=== PATIENT | female | born 1940 | race Caucasian/White ===

== ENCOUNTER 2016-10-18 15:10 | Emergency (ER) | payer MEDICARE, MEDICAID ==
[2016-10-18] MEDS ORDERED: Lidocaine 1% with EPINEPHrine 1:100,000 20 ML MDV INJECT ONE (15:22)
[2016-10-18] MEDS ORDERED: Diphtheria,Pertussis(Acell),Tetanus Vaccine 0.5 ML Syringe IM ONE (17:04)
--- NOTE | 2016-10-18 17:10 | EDM.PDOC ---
ED HPI HEAD INJURY - General Chief Complaint: Head Injury Stated Complaint: FALL Time Seen by Provider: 10/18/16 16:04 Source of Information: Reports: Patient, Family History Limitations: Reports: No limitations - History of Present Illness INITIAL COMMENTS - FREE TEXT/NARRATIVE: HISTORY AND PHYSICAL: [76-year-old female presents per EMS after having fallen in her yard. She was stepping over some boards with a shovel in her hand and fell striking the shovel against her forehead. C-collar is in place on arrival.] History of Present Illness: [Just prior to emergency room visit patient had injury. Reports no loss of consciousness. Bandages to scalp and right forhead] Review of Systems: As per history of present illness and below otherwise all systems reviewed and negative. Past medical history: As per history of present illness and as reviewed below otherwise noncontributory. Surgical history: As per history of present illness and as reviewed below otherwise noncontributory. Social history: No reported history of drug or alcohol abuse. Family history: As per history of present illness and as reviewed below otherwise noncontributory. Physical exam: Alert female speaking appropriately remembers incident. HEENT: 2 cm laceration to right forehead, area is bleeding in spurts 1% lidocaine with epinephrine is injected to this area vasospasm did stop the bleeding no other injuries were noted scalp, normocehpalic, pupils reactive, negative for conjunctival pallor or scleral icterus, mucous membranes moist, throat clear, neck supple, nontender, trachea midline. Lungs: Clear to auscultation, breath sounds equal bilaterally, chest non tender. Heart: S1S2, regular, negative for clicks, rubs, or JVD. Abdomen: Soft, nondistended, nontender. Negative for masses or hepatossplenmegaly. Negative for costovertebral tenderness. Pelvis: Stable nontender. Genitourinary: Deferred. Rectal: Deferred Extremities: Minor scrape on right forearm and right humerus, no bleeding noted , negative for cords or calf pain. Arthritic pain is present unchanged from her normal. Minor abrasion to right knee full range of motion present all pedal pulses were easily palpable and full range of motion present to each extremity. Neurovascular unremarkable. Neuro: Awake, alert, oriented. Cranial nerves II through XII unremarkable. Cerebellum unremarkable. Motor and sensory unremarkable throughout. Exam nonfocal. Diagnostics: [CT head negative for cranial bleed /fracture] Therapeutics: [Sutures placed] Impression: [fall with laceration] Plan: [Followup with Dr. Stuart next] Definitive disposition and diagnosis as appropriate pending reevaluation and review of above. Timing/Duration: Reports: Minutes:, Sudden onset Location: Reports: frontal Quality: Reports: stabbing Severity: moderate Place of Occurrence: home Improves with: none Worsens with: movement Context: Reports: fall Associated Symptoms: Reports: no other symptoms - Related Data Allergies/ADRs: Allergies Allergy/AdvReac Type Severity Reaction Status Date / Time morphine Allergy Other Verified 05/28/15 16:25 Home Meds: Home Meds Lisinopril 5 mg PO DAILY 10/18/16 [History] Past Medical History HEENT History: Reports: None, Other (see below) Other HEENT History: Wears glasses Cardiovascular History: Reports: Hypertension Respiratory History: Reports: None Gastrointestinal History: Reports: None Genitourinary History: Reports: None 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 Musculoskeletal History: Reports: Osteoarthritis Neurological History: Reports: None Psychiatric History: Reports: None Endocrine/Metabolic History: Reports: None Hematologic History: Reports: None Immunologic History: Reports: None Oncologic (Cancer) History: Reports: None Dermatologic History: Reports: None - Infectious Disease History Infectious Disease History: Reports: None - Past Surgical History Head Surgeries/Procedures: Reports: None HEENT Surgical History: Reports: None Cardiovascular Surgical History: Reports: None Respiratory Surgical History: Reports: None GI Surgical History: Reports: None Female Surgical History: Reports: None Endocrine Surgical History: Reports: None Musculoskeletal Surgical History: Reports: None Dermatological Surgical History: Reports: None Social & Family History - Family History Family Medical History: Noncontributory - Tobacco Use Smoking Status *Q: Never Smoker - Caffeine Use Caffeine Use: Reports: None - Recreational Drug Use Recreational Drug Use: No ED ROS GENERAL - Review of Systems Review Of Systems: ROS reveals no pertinent complaints other than HPI. ED EXAM, HEAD INJURY - Physical Exam Exam: See Below (See dictation) ED LACERATION/WOUND & MANI PROC - Laceration/Wound Repair Right Lateral Forehead Lac/wound length in cm: 2 Appearance: subcutaneous, linear, clean Distal NVT: neuro & vascular intact, no tendon injury Local anesthesia - Lidocaine (Xylocaine): 1% with epi Local anesthetic volume: 5cc Skin prep: saline Exploration/Debridement/Repair: wound explored, in a bloodless field, explored to base Closed with: sutures Suture size: 3-0 # of sutures: 4 Suture type: nylon, interrupted, simple Drain placement: No Tetanus status addressed: Yes Complications: No Course - Vital Signs Last Recorded V/S: Last Vital Signs Temp 36.8 C 10/18/16 16:55 Pulse 72 10/18/16 16:55 Resp 18 10/18/16 16:55 BP 136/62 10/18/16 16:55 Pulse Ox 95 10/18/16 16:55 - Orders/Labs/Meds Orders: Active Orders 24 hr Category Date Time Status Head wo Cont [CT] Stat Exams 10/18/16 16:05 Taken Meds: Medications Discontinued Medications Generic Name Dose Route Start Last Admin Trade Name Trever PRN Reason Stop Dose Admin Lidocaine/Epinephrine 20 ml 10/18/16 15:22 Xylocaine 1% With Epinephrine 1:100,000 INJECT 10/18/16 15:23 ONETIME ONE Departure - Departure Time of Disposition: 17:12 Disposition: Home, Self-Care 01 Condition: good Clinical Impression: Laceration Instructions: Head Injury, Adult, [id number] Forms: ED Department Discharge Additional Instructions: [] Plan: [The following information is given to patients seen in the emergency department who are being discharged to home. This information is to outline your options for follow-up care. We provide all patients seen in our emergency department with a follow-up referral. The need for follow-up, as well as the timing and circumstances, are variable depending upon the specifics of your emergency department visit. If you don't have a primary care physician on staff, we will provide you with a referral. We always advise you to contact your personal physician following an emergency department visit to inform them of the circumstance of the visit and for follow-up with them and/or the need for any referrals to a consulting specialist. The emergency department will also refer you to a specialist when appropriate. This referral assures that you have the opportunity for followup care with a specialist. All of these measure are taken in an effort to provide you with optimal care, which includes your followup. Under all circumstances we always encourage you to contact your private physician who remains a resource for coordinating your care. When calling for followup care, please make the office aware that this follow-up is from your recent emergency room visit. If for any reason you are refused follow-up, please contact the [facility] emergency department at and asked to speak to the emergency department charge nurse. Sutures out in 7 days Follow up with Dr. Stuart next week] Definitive disposition and diagnosis as appropriate pending reevaluation and review of above. - My Orders Last 24 Hours: My Active Orders 10/18/16 16:05 Head wo Cont [CT] Stat - Assessment/Plan Last 24 Hours: My Active Orders 10/18/16 16:05 Head wo Cont [CT] Stat
[2016-10-18 17:40] VITALS: BP 137/73
--- NOTE | 2016-10-20 17:12 | CT ---
.EXAM DATE: 10/18/16 PATIENT'S AGE: 76 Patient: AVIS KANG Facility: [place], [place] Site . Site : 1940 Study: CT Head [id number] wo cont-10/18/2016 4:31:09 PM Ordering Physician: Doctor Baez Final Report: INDICATION: Fell and hit head. Technique: CT head without IV contrast. Findings: No acute intracranial hemorrhage, edema, or mass effect. Mild soft tissue swelling and hematoma in the midline frontal scalp. Mild diffuse cerebral and cerebellar atrophy. Remainder negative. Impression: 1. No acute intracranial disease. 2. Mild soft tissue swelling and hematoma in the frontal scalp without skull fracture. 3. Mild chronic intracranial disease as detailed above. Dictated by Tony Breaux MD @ Oct 18 2016 4:44PM (Electronic Signature) Report Signed by Proxy. ALICIA
== END 2016-10-18 17:38 | disposition home or self-care (01) ==
LOC: MW.ED 15:10
DX: S01.81XA Laceration without foreign body of other part of head, initial encounter (principal); I10 Essential (primary) hypertension; M19.90 Unspecified osteoarthritis, unspecified site; Z88.5 Allergy status to narcotic agent; Z79.899 Other long term (current) drug therapy; Z23 Encounter for immunization; W18.31XA Fall on same level due to stepping on an object, initial encounter; Y92.096 Garden or yard of other non-institutional residence as the place of occurrence of the external cause
CPT/HCPCS: 12011; 70450; 70450-26; 90471; 90715; 99282; 99284-25

== ENCOUNTER 2016-10-19 23:44 | Emergency (ER) | payer MEDICARE, MEDICAID ==
[2016-10-19 23:55] VITALS: BP 167/78
--- NOTE | 2016-10-20 00:36 | EDM.PDOC ---
ED HPI HEAD INJURY - General Chief Complaint: Headache Stated Complaint: IRRITATED EYES Time Seen by Provider: 10/19/16 23:52 Source of Information: Reports: Patient, Family History Limitations: Reports: No limitations - History of Present Illness INITIAL COMMENTS - FREE TEXT/NARRATIVE: HISTORY AND PHYSICAL: History of present illness: [76-year-old female now presents to the emergency department because of bilateral periorbital ecchymosis patient fell on the sixth of this month suffered a laceration and contusion to her for her head with a small hematoma. She was seen in the emergency department by Dr. Day. Her wound was repaired. Her CT of the head showed no bleed and no fracture. Patient is not on any anticoagulants. She was discharged for outpatient followup. Patient now returns 2 days later because of black and blue around her eyes. She was not aware this might happen and she is very concerned. Patient states her neck is still sore. Apparently neck was not hurting when she was previously seen has no CAT scan of the C-spine was done. Patient does report persistent mild headache. Review of systems: As per history of present illness and below otherwise all systems reviewed and negative. Past medical history: As per history of present illness and as reviewed below otherwise noncontributory. Surgical history: As per history of present illness and as reviewed below otherwise noncontributory. Social history: No reported history of drug or alcohol abuse. Family history: As per history of present illness and as reviewed below otherwise noncontributory. Physical exam: Newly female alert communicative no acute distress. Mildly anxious when discussing the bruising around her eyes HEENT: Mild periorbital ecchymosis mostly in the medial and superior distribution. No bony tenderness or crepitus. Wound healing well with no erythema warmth fluctuance or tenderness. Mild hematoma for head resolving and bruising around is very consistent with gravity effect on resolving forhead hematoma .normocephalic, pupils reactive, negative for conjunctival pallor or scleral icterus, mucous membranes moist, throat clear, neck supple, nontender, trachea midline. No galan sign Lungs: Clear to auscultation, breath sounds equal bilaterally, chest nontender. Heart: S1S2, regular, negative for clicks, rubs, or JVD. Abdomen: Soft, nondistended, nontender. Negative for masses or hepatosplenomegaly. Negative for costovertebral tenderness. Pelvis: Stable nontender. Genitourinary: Deferred. Rectal: Deferred. Extremities: Atraumatic, negative for cords or calf pain. Neurovascular unremarkable. Neuro: Awake, alert, oriented. Cranial nerves II through XII unremarkable. Cerebellum unremarkable. Motor and sensory unremarkable throughout. Exam nonfocal. Diagnostics: [CT head and C-spine] Therapeutics: [Xanax] Impression: [Periorbital ecchymosis Cervical strain Anxiety] Plan: [Signs and symptoms consistent with mild neck soreness consistent with cervical strain which was apparently asymptomatic during patient's initial presentation, patient now manifesting her your or ecchymosis consistent with gravitational sequelae of forehead hematoma. Patient nonfocal neurologically and well- appearing. Her presentation is clearly complicated by anxiety and Xanax was given for anxiety lysis. CT of the head and C-spine pending to rule out abnormality unremarkable anticipate outpatient followup. Patient and daughter agree with this and strict return precautions will be given. Splint to patient and family at length that periorbital ecchymosis is common and expected in an elderly person midforehead hematoma while the subcutaneous blood resolves. Definitive disposition and diagnosis as appropriate pending reevaluation and review of above. - Related Data Allergies/ADRs: Allergies Allergy/AdvReac Type Severity Reaction Status Date / Time morphine Allergy Numbness Verified 10/19/16 23:56 Home Meds: Home Meds Lisinopril 10 mg PO DAILY 10/18/16 [History] Lisinopril [Prinivil] 5 mg PO DAILY 10/19/16 [History] amLODIPine [Norvasc] 5 mg PO BID 10/19/16 [History] atorvaSTATin [Lipitor] 40 mg PO DAILY 10/19/16 [History] Past Medical History HEENT History: Reports: None, Other (see below) Other HEENT History: Wears glasses Cardiovascular History: Reports: High cholesterol, Hypertension Respiratory History: Reports: None Gastrointestinal History: Reports: None Genitourinary History: Reports: None [employer] O[employer] History: Reports: None Musculoskeletal History: Reports: Osteoarthritis Neurological History: Reports: None Psychiatric History: Reports: None Endocrine/Metabolic History: Reports: None Hematologic History: Reports: None Immunologic History: Reports: None Oncologic (Cancer) History: Reports: None Dermatologic History: Reports: None - Infectious Disease History Infectious Disease History: Reports: Chicken pox, Measles - Past Surgical History Head Surgeries/Procedures: Reports: None HEENT Surgical History: Reports: None Cardiovascular Surgical History: Reports: None Respiratory Surgical History: Reports: None GI Surgical History: Reports: Hernia, abdominal Female Surgical History: Reports: None Endocrine Surgical History: Reports: None Musculoskeletal Surgical History: Reports: None Dermatological Surgical History: Reports: None Social & Family History - Family History Family Medical History: Noncontributory - Tobacco Use Smoking Status *Q: Never Smoker Second Hand Smoke Exposure: No - Caffeine Use Caffeine Use: Reports: Soda Caffeine Use Comment: 1drink/day - Recreational Drug Use Recreational Drug Use: No ED ROS GENERAL - Review of Systems Review Of Systems: See Below (Per history of present illness) ED EXAM, HEAD INJURY - Physical Exam Exam: See Below (Her history of present illness) Course - Vital Signs Last Recorded V/S: Last Vital Signs Temp 36.3 C 10/19/16 23:51 Pulse 70 10/19/16 23:51 Resp 20 10/19/16 23:51 BP 167/78 H 10/19/16 23:51 Pulse Ox 97 10/19/16 23:51 - Orders/Labs/Meds Orders: Active Orders 24 hr Category Date Time Status C Collar Applied [Spinal Immobilization] [RC] Care 10/20/16 00:27 Active ASDIRECTED Cervical Spine wo Cont [CT] Stat Exams 10/20/16 00:26 Ordered Head wo Cont [CT] Stat Exams 10/20/16 00:16 Ordered Departure - Departure Time of Disposition: 01:57 Disposition: Home, Self-Care 01 Condition: good Clinical Impression: Periorbital ecchymosis, Healing laceration, Anxiety Forms: ED Department Discharge Additional Instructions: Laceration appears to be healing well. Continue good wound care and followup for suture removal as previously directed. The bruising around her eyes also known as "black eyes "is common and expected in the setting of previously having had a bruise and swelling of your forehead. As the blood breaks down the blood breakdown products move downward by gravity and surround her eyes causing this finding. It looks dramatic but it is not threatening. The CAT scan of your head shows no bleeding or injury to your brain. No skull fracture. The CAT scan of your neck shows no fracture so the soreness as a result of neck strain also called "cervical strain." Followup with your in one to 2 days and return immediately for new severe or worsening symptoms - My Orders Last 24 Hours: My Active Orders 10/20/16 00:16 Head wo Cont [CT] Stat 10/20/16 00:26 Cervical Spine wo Cont [CT] Stat 10/20/16 00:27 C Collar Applied [Spinal Immobilization] [RC] ASDIRECTED - Assessment/Plan Last 24 Hours: My Active Orders 10/20/16 00:16 Head wo Cont [CT] Stat 10/20/16 00:26 Cervical Spine wo Cont [CT] Stat 10/20/16 00:27 C Collar Applied [Spinal Immobilization] [RC] ASDIRECTED
--- NOTE | 2016-10-21 12:08 | CT ---
EXAM DATE: 10/19/16 PATIENT'S AGE: 76 Patient: AVIS KANG Facility: [place], [place] Site . Site : 1940 Study: CT Spine Cervical [id number] 1:05:09 AM Ordering Physician: Curtis White Final Report: INDICATION: Fall TECHNIQUE: CT cervical spine without contrast. COMPARISON: Normal FINDINGS: Vertebral alignment: Mild grade 1 anterolisthesis C4 over C5. Vertebrae: There are no fractures or suspicious bony lesions. Discs and facet joints: Multilevel degenerative changes. Extraspinal findings: Prevertebral soft tissues, visualized airway, and visualized lungs are unremarkable. 2.0 centimeter x 1.0 centimeter low attenuation nodule involving the inferior left lobe of the thyroid gland extending into the isthmus. IMPRESSION: No evidence of acute cervical spine trauma. Mild grade 1 anterolisthesis C4 over C5. Multilevel degenerative changes. A 2.0 centimeter x 1.0 centimeter low attenuation nodule involving the inferior left lobe of the thyroid gland extending into the isthmus. Dictated by Bucky Casey MD @ 10/20/2016 1:30:04 AM Dictated by: Bucky Casey MD @ 10/20/2016 01:30:10 (Electronic Signature) Report Signed by Proxy. ALICIA
--- NOTE | 2016-10-21 12:08 | CT ---
EXAM DATE: 10/19/16 PATIENT'S AGE: 76 Patient: AVIS KANG Facility: [place], [place] Site . Site : 1940 Study: CT Head [id number] 12:51:47 AM Ordering Physician: Curtis White Final Report: INDICATION: Fall TECHNIQUE: CT head without contrast. COMPARISON: 10/18/2016 FINDINGS: CSF spaces: Within normal limits for age. Brain parenchyma: The kenny-white differentiation is normal. No sign of mass, hemorrhage, or midline shift. Skull base and calvarium: The visualized paranasal sinuses and mastoid air cells demonstrate no acute or significant findings. The visualized orbits are grossly unremarkable. No skull fractures. Mild frontal scalp hematoma. IMPRESSION: Mild frontal scalp hematoma with no associated fractures or evidence of acute intracranial trauma. Dictated by Bucky Casey MD @ 10/20/2016 1:24:03 AM Dictated by: Bucky Casey MD @ 10/20/2016 01:24:12 (Electronic Signature) Report Signed by Proxy. [facility]ITALDiann
== END 2016-10-20 02:24 | disposition home or self-care (01) ==
LOC: MW.ED 23:44
DX: S00.11XA Contusion of right eyelid and periocular area, initial encounter (principal); S01.91XA Laceration without foreign body of unspecified part of head, initial encounter; S00.12XA Contusion of left eyelid and periocular area, initial encounter; F41.9 Anxiety disorder, unspecified; E78.00 Pure hypercholesterolemia, unspecified; I10 Essential (primary) hypertension; Z88.5 Allergy status to narcotic agent; Z79.899 Other long term (current) drug therapy; W19.XXXA Unspecified fall, initial encounter
CPT/HCPCS: 70450; 70450-26; 72125; 72125-26; 99283; 99283-25

== ENCOUNTER → 2016-10-22 | Outpatient (CLI) | payer MEDICARE, MEDICAID | LOC: MW.CHIM 08:00 | PROVIDERS: ATTEND Internal Medicine | DX: S00.83XA Contusion of other part of head, initial encounter (principal); S01.81XA Laceration without foreign body of other part of head, initial encounter; W01.0XXA Fall on same level from slipping, tripping and stumbling without subsequent striking against object, initial encounter | CPT/HCPCS: G0463 ==

== ENCOUNTER 2016-10-25 12:34 | Emergency (ER) | payer MEDICAID, MEDICARE ==
[2016-10-25 13:03] VITALS: BP 128/69
== END 2016-10-25 13:05 | disposition left against medical advice (07) ==
LOC: MW.ED 12:34
DX: S01.81XD Laceration without foreign body of other part of head, subsequent encounter (principal); Z48.00 Encounter for change or removal of nonsurgical wound dressing; X58.XXXD Exposure to other specified factors, subsequent encounter
CPT/HCPCS: 99281

== ENCOUNTER 2019-02-20 11:35 | Emergency (ER) | payer MEDICAID, MEDICARE ==
--- NOTE | 2019-02-20 11:52 | EDM.PDOC ---
ED HPI GENERAL MEDICAL PROBLEM - General Chief Complaint: Back Pain or Injury Stated Complaint: BACK PAIN,COUGH Time Seen by Provider: 02/20/19 11:47 Source of Information: Reports: Patient History Limitations: Reports: No Limitations - History of Present Illness INITIAL COMMENTS - FREE TEXT/NARRATIVE: HISTORY AND PHYSICAL: History of present illness: Patient is a 78-year-old female who presents to the emergency room today with complaints of left sided skin/back pain and cough. She states she has had a dry nonproductive cough 1 week. Over the past few days she has had pain with palpation and even gentle touch of her skin on the left posterior side. Patient denies any fever, chills, headache, change in vision, syncope or near syncope. Denies any chest pain, shortness of breath or cough. Denies any abdominal pain, nausea, vomiting, diarrhea, constipation or dysuria. Has not noted any blood in urine or stool. Patient has been eating and drinking appropriately. Review of systems: As per history of present illness and below otherwise all systems reviewed and negative. Past medical history: As per history of present illness and as reviewed below otherwise noncontributory. Surgical history: As per history of present illness and as reviewed below otherwise noncontributory. Social history: See social history for further information Family history: As per history of present illness and as reviewed below otherwise noncontributory. Physical exam: General: Well-developed and well-nourished 78-year-old female. Alert and oriented. Nontoxic appearing and in no acute distress. HEENT: Atraumatic, normocephalic, pupils equal and reactive bilaterally, negative for conjunctival pallor or scleral icterus, mucous membranes moist, TMs normal bilaterally, throat clear, neck supple, nontender, trachea midline. No drooling or trismus noted. No meningeal signs. No hot potato voice noted. Lungs: Clear to auscultation, breath sounds equal bilaterally, chest nontender. Heart: S1S2, regular rate and rhythm without overt murmur Abdomen: Soft, nondistended, nontender. Negative for masses or hepatosplenomegaly. Negative for costovertebral tenderness. Pelvis: Stable nontender. Skin: Intact, warm, dry. Tenderness with palpation of her skin on the left lateral mid abdomen/side. No lesions or rashes noted. Extremities: Atraumatic, moves all extremities per self without difficulty or deficits, negative for cords or calf pain. Neurovascular unremarkable. C-spine/Back: No pinpoint vertebral tenderness upon palpation. No crepitus, step -offs or obvious deformities. Denies any urinary or fecal incontinence. Denies any numbness, tingling or saddle paresthesia. Neuro: Awake, alert, oriented. Cranial nerves II through XII unremarkable. Cerebellum unremarkable. Motor and sensory unremarkable throughout. Exam nonfocal. Notes: Dr Whipple was involved in this case. She did go an assess this patient, would like a CT added as this patient did c/o abdominal tenderness with her examination. Patient does have some leukocytosis without source. Chest x-ray shows no acute findings. CT of the abdomen and pelvis shows a small left adrenal mass. Mildly diffuse fatty infiltration of the liver. Degenerative changes. Nothing to support further treatment. We'll give her some Phenergan with codeine for her pain/cough. We discussed the need for follow-up with her primary care provider next week. Supportive care measures were reviewed and discussed. Voices understanding and is agreeable to plan of care. Denies any further questions or concerns at this time. Diagnostics: CBC, CMP, UA, CT abd/pelvis, Blood culture x 2 Therapeutics: IM toradol Prescription: Phenergan with codeine Impression: Back Pain Plan: 1. Monitor skin for rash outbreak 2. Tylenol and/or Ibuprofen as needed for pain. Phenergan w/ codeine for pain and cough. His medication may cause some drowsiness a do not take it will driving her needing to be functioning outside of the house. 3. Follow up with primary care provider as we discussed. Return to the ED as needed as discussed. Definitive disposition and diagnosis as appropriate pending reevaluation and review of above. Left back Pain Score (Numeric/FACES): 8 - Related Data Allergies Allergy/AdvReac Type Severity Reaction Status Date / Time morphine Allergy Numbness Verified 02/20/19 12:09 Home Meds: Home Meds Lisinopril [Prinivil] 5 mg PO DAILY 10/19/16 [History] amLODIPine [Norvasc] 5 mg PO BID 10/19/16 [History] atorvaSTATin [Lipitor] 40 mg PO DAILY 10/19/16 [History] Famciclovir 500 mg PO TID 7 Days #21 tablet 02/20/19 [Rx] Past Medical History HEENT History: Reports: None, Other (See Below) Other HEENT History: Wears glasses Cardiovascular History: Reports: High Cholesterol, Hypertension Respiratory History: Reports: None Gastrointestinal History: Reports: None Genitourinary History: Reports: None 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 Musculoskeletal History: Reports: Osteoarthritis Neurological History: Reports: None Psychiatric History: Reports: None Endocrine/Metabolic History: Reports: None Hematologic History: Reports: None Immunologic History: Reports: None Oncologic (Cancer) History: Reports: None Dermatologic History: Reports: None - Infectious Disease History Infectious Disease History: Reports: Chicken Pox, Measles - Past Surgical History GI Surgical History: Reports: Hernia, Abdominal Social & Family History - Family History Family Medical History: Noncontributory - Caffeine Use Caffeine Use: Reports: Soda Caffeine Use Comment: 1drink/day ED ROS GENERAL - Review of Systems Review Of Systems: ROS reveals no pertinent complaints other than HPI. ED EXAM,LOWER BACK PAIN/INJURY - Physical Exam Exam: See Below (See dictation) Course - Vital Signs Last Recorded V/S: Last Vital Signs Temp 98.3 F 02/20/19 12:10 Pulse 96 02/20/19 12:10 Resp 18 02/20/19 12:10 BP 139/76 02/20/19 12:10 Pulse Ox 96 02/20/19 12:10 - Orders/Labs/Meds Orders: Active Orders 24 hr Category Date Time Status CULTURE BLOOD [BC] Stat Lab 02/20/19 13:14 Received CULTURE BLOOD [BC] Stat Lab 02/20/19 13:19 Received Sodium Chloride 0.9% [Normal Saline] 1,000 ml Med 02/20/19 13:07 Active IV STAT Blood Culture x2 Reflex Set [OM.PC] Stat Oth 02/20/19 13:02 Ordered Medication Orders Sodium Chloride (Normal Saline) 1,000 mls @ 125 mls/hr IV STAT ONE Stop: 02/20/19 21:06 Last Admin: 02/20/19 13:58 Dose: 125 mls/hr Labs: Laboratory Tests 02/20/19 02/20/19 02/20/19 Range/Units 12:54 12:54 13:35 WBC 14.78 H (4.0-11.0) K/uL RBC 4.41 (4.30-5.90) M/uL Hgb 13.6 (12.0-16.0) g/dL Hct 40.5 (36.0-46.0) % MCV 91.8 (80.0-98.0) fL MCH 30.8 (27.0-32.0) pg MCHC 33.6 (31.0-37.0) g/dL RDW Std Deviation 46.4 (28.0-62.0) fl RDW Coeff of Carmen 14 (11.0-15.0) % Plt Count 216 (150-400) K/uL MPV 9.50 (7.40-12.00) fL Neut % (Auto) 80.5 H (48.0-80.0) % Lymph % (Auto) 10.8 L (16.0-40.0) % Irwin % (Auto) 8.6 (0.0-15.0) % Eos % (Auto) 0.0 (0.0-7.0) % Baso % (Auto) 0.1 (0.0-1.5) % Neut # (Auto) 11.9 H (1.4-5.7) K/uL Lymph # (Auto) 1.6 (0.6-2.4) K/uL Irwin # (Auto) 1.3 H (0.0-0.8) K/uL Eos # (Auto) 0.0 (0.0-0.7) K/uL Baso # (Auto) 0.0 (0.0-0.1) K/uL Nucleated RBC % 0.0 /100WBC Nucleated RBCs # 0 K/uL Sodium 137 (136-145) mmol/L Potassium 4.0 (3.5-5.1) mmol/L Chloride 102 (98-107) mmol/L Carbon Dioxide 25.7 (21.0-32.0) mmol/L BUN 17 (7.0-18.0) mg/dL Creatinine 1.0 (0.6-1.0) mg/dL Est Cr Clr Drug Dosing 43.07 mL/min Estimated GFR (MDRD) 53.9 ml/min Glucose 126 H (74-106) mg/dL Calcium 9.7 (8.5-10.1) mg/dL Total Bilirubin 1.3 H (0.2-1.0) mg/dL AST 18 (15-37) IU/L ALT 25 (14-63) IU/L Alkaline Phosphatase 66 (46-116) U/L Total Protein 7.0 (6.4-8.2) g/dL Albumin 3.5 (3.4-5.0) g/dL Globulin 3.5 (2.6-4.0) g/dL Albumin/Globulin Ratio 1.0 (0.9-1.6) Urine Color YELLOW Urine Appearance CLEAR Urine pH 5.5 (5.0-8.0) Ur Specific Marshall 1.020 (1.001-1.035) Urine Protein NEGATIVE (NEGATIVE) mg/dL Urine Glucose (UA) NEGATIVE (NEGATIVE) mg/dL Urine Ketones NEGATIVE (NEGATIVE) mg/dL Urine Occult Blood TRACE-INTACT H (NEGATIVE) Urine Nitrite NEGATIVE (NEGATIVE) Urine Bilirubin NEGATIVE (NEGATIVE) Urine Urobilinogen 0.2 (<2.0) EU/dL Ur Leukocyte Esterase NEGATIVE (NEGATIVE) Urine RBC 2-5 (0-2/HPF) Urine WBC 0-2 (0-5/HPF) Ur Epithelial Cells OCCASIONAL (NONE-FEW) Urine Bacteria FEW (NEGATIVE) Urine Mucus LIGHT (NONE-MOD) Meds: Medications Generic Name Dose Route Start Last Admin Trade Name Freq PRN Reason Stop Dose Admin Sodium Chloride 1,000 mls @ 125 mls/hr 02/20/19 13:07 02/20/19 13:58 Normal Saline IV 02/20/19 21:06 125 mls/hr STAT ONE Administration Discontinued Medications Generic Name Dose Route Start Last Admin Trade Name Freq PRN Reason Stop Dose Admin Iopamidol 75 ml 02/20/19 13:59 02/20/19 14:00 Isovue-370 (76%) IVPUSH 02/20/19 14:00 75 ml ONETIME STA Administration Ketorolac Tromethamine 60 mg 02/20/19 12:15 02/20/19 12:44 Toradol IM 02/20/19 12:16 60 mg ONETIME ONE Administration Departure - Departure Time of Disposition: 14:23 Disposition: Home, Self-Care 01 Clinical Impression: Back pain Qualifiers: Back pain location: low back pain Chronicity: unspecified Back pain laterality : left Sciatica presence: without sciatica Qualified Code(s): M54.5 - Low back pain - Discharge Information Prescriptions: Famciclovir 500 mg PO TID 7 Days #21 tablet Instructions: Acute Back Pain, Adult Referrals: David Stuart MD [Primary Care Provider] - Forms: ED Department Discharge Additional Instructions: The following information is given to patients seen in the emergency department who are being discharged to home. This information is to outline your options for follow-up care. We provide all patients seen in our emergency department with a follow-up referral. The need for follow-up, as well as the timing and circumstances, are variable depending upon the specifics of your emergency department visit. If you don't have a primary care physician on staff, we will provide you with a referral. We always advise you to contact your personal physician following an emergency department visit to inform them of the circumstance of the visit and for follow-up with them and/or the need for any referrals to a consulting specialist. The emergency department will also refer you to a specialist when appropriate. This referral assures that you have the opportunity for follow-up care with a specialist. All of these measure are taken in an effort to provide you with optimal care, which includes your follow-up. Under all circumstances we always encourage you to contact your private physician who remains a resource for coordinating your care. When calling for follow-up care, please make the office aware that this follow-up is from your recent emergency room visit. If for any reason you are refused follow-up, please contact the [facility] Emergency Department at and asked to speak to the emergency department charge nurse. [facility] Primary Care [address] [place] [id number] [facility] [address] [place] [id number] 1. Monitor skin for rash outbreak 2. Tylenol and/or Ibuprofen as needed for pain. Phenergan w/ codeine for pain and cough. His medication may cause some drowsiness a do not take it will driving her needing to be functioning outside of the house. 3. Follow up with primary care provider as we discussed. Return to the ED as needed as discussed. . - My Orders Last 24 Hours: My Active Orders 02/20/19 13:02 Blood Culture x2 Reflex Set [OM.PC] Stat 02/20/19 13:07 Sodium Chloride 0.9% [Normal Saline] 1,000 ml IV STAT 02/20/19 13:14 CULTURE BLOOD [BC] Stat 02/20/19 13:19 CULTURE BLOOD [BC] Stat - Assessment/Plan Last 24 Hours: My Active Orders 02/20/19 13:02 Blood Culture x2 Reflex Set [OM.PC] Stat 02/20/19 13:07 Sodium Chloride 0.9% [Normal Saline] 1,000 ml IV STAT 02/20/19 13:14 CULTURE BLOOD [BC] Stat 02/20/19 13:19 CULTURE BLOOD [BC] Stat
[2019-02-20] MEDS ORDERED: Ketorolac 60 MG/2 ML SDV IM ONE (12:15)
--- NOTE | 2019-02-20 12:42 | CR ---
Indication: Shortness of breath. Back pain. Technique: PA and lateral view of the chest were obtained Comparison: None Findings: The heart is normal in size. The lungs are clear. Degenerative changes of both shoulders are identified. No fracture or subluxation is identified. Impression: No acute cardiopulmonary process. Dictated by Nalini Hayward MD @ Feb 20 2019 12:40PM Signed by Dr. Nalini Hayward @ Feb 20 2019 12:41PM
[2019-02-20] MEDS ORDERED: Sodium Chloride 0.9% 1,000 ML IV ONE (13:07)
[2019-02-20 13:23] LABS: CARBON DIOXIDE,CO2 25.7 mmol/L (21.0-32.0)
[2019-02-20] MEDS ORDERED: Iopamidol 755 Mg/ML 100 ML Bottle IVPUSH STA (13:59)
--- NOTE | 2019-02-20 14:08 | CT ---
Indication: Abdominal pain. Technique: Multiple contiguous axial images were obtained from the lung bases through the symphysis pubis after the intravenous administration of 75 milliliters Isovue 370. Please note that all CT scans at this facility use dose modulation, iterative reconstruction, and/or weight-based dosing when appropriate to reduce radiation dose to as low as reasonably achievable. Comparison: None Findings: Coronary artery calcifications are identified. The heart is normal in size. No pericardial effusion is identified. The lung bases are clear. No infiltrate or pneumothorax is identified. Mild diffuse fatty infiltration of the liver is identified. The liver, spleen, pancreas, adrenals, and kidneys are normal. No intrahepatic biliary ductal dilatation is identified. No hydronephrosis is seen. Postsurgical changes of cholecystectomy are identified. A small left adrenal mass is identified. This measures approximately 9 mm in size and is best seen on image number 44, series 201. A dedicated adrenal scan protocol is recommended for further evaluation. In the pelvis, the uterus is grossly normal. The urinary bladder is grossly normal. Small and large bowel are normal in caliber. No free air pr free fluid is identified within the abdomen or pelvis. Vascular calcifications are identified. Degenerative changes of the spine are seen. Degenerative changes of the spine are identified. No definite lytic or blastic lesions are seen. Impression: Small left adrenal mass. A follow-up CT scan of the abdomen with adrenal protocol is recommended. Mild diffuse fatty infiltration of the liver Degenerative change. Please note that all CT scans at this facility use dose modulation, iterative reconstruction, and/or weight-based dosing when appropriate to reduce radiation dose to as low as reasonably achievable. Dictated by Nalnii Hayward MD @ Feb 20 2019 2:01PM Signed by Dr. Nalini Hayward @ Feb 20 2019 2:05PM
[2019-02-20 16:07] VITALS: BP 122/63
== END 2019-02-20 14:50 | disposition home or self-care (01) ==
LOC: MW.ED 11:35
DX: M54.5 Low back pain (principal); I10 Essential (primary) hypertension; E78.00 Pure hypercholesterolemia, unspecified; Z88.5 Allergy status to narcotic agent; Z79.899 Other long term (current) drug therapy
CPT/HCPCS: 36415; 71046; 74177; 80053; 81001; 85025; 87040; 96360; 96372; 99284; J1885; J7040; Q9967

== ENCOUNTER 2020-12-08 23:18 | Emergency (ER) | payer MEDICARE ==
[2020-12-08 23:40] VITALS: BP 134/71; PULSE 97
--- NOTE | 2020-12-09 00:01 | EDM.PDOC ---
ED HPI GENERAL MEDICAL PROBLEM - General Chief Complaint: Respiratory Problem Stated Complaint: BAD COUGH Time Seen by Provider: 12/08/20 23:20 Source of Information: Reports: Patient History Limitations: Reports: No Limitations - History of Present Illness INITIAL COMMENTS - FREE TEXT/NARRATIVE: Patient is a 80-year-old female who presents today for cough for the past few months. Patient has been seen for cough before not when she is been getting settled cough. Patient adamant she denies any chest pain shortness of breath fever chills nausea vomiting or other concerns. Patient she does have runny noses about it. Patient states that she tried [id number] medication without relief of her cough. - Related Data Allergies Allergy/AdvReac Type Severity Reaction Status Date / Time morphine Allergy Numbness Verified 12/08/20 23:40 Home Meds: Home Meds Lisinopril [Prinivil] 5 mg PO DAILY 10/19/16 [History] amLODIPine [Norvasc] 5 mg PO BID 10/19/16 [History] atorvaSTATin [Lipitor] 40 mg PO DAILY 10/19/16 [History] Famciclovir 500 mg PO TID 7 Days #21 tablet 02/20/19 [Rx] Past Medical History HEENT History: Reports: None, Other (See Below) Other HEENT History: Wears glasses Cardiovascular History: Reports: High Cholesterol, Hypertension Respiratory History: Reports: None Gastrointestinal History: Reports: None Genitourinary History: Reports: None 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 Musculoskeletal History: Reports: Osteoarthritis Neurological History: Reports: None Psychiatric History: Reports: None Endocrine/Metabolic History: Reports: None Hematologic History: Reports: None Immunologic History: Reports: None Oncologic (Cancer) History: Reports: None Dermatologic History: Reports: None - Infectious Disease History Infectious Disease History: Reports: Chicken Pox, Measles - Past Surgical History GI Surgical History: Reports: Hernia, Abdominal Social & Family History - Family History Family Medical History: No Pertinent Family History - Tobacco Use Tobacco Use Status *Q: Never Tobacco User Second Hand Smoke Exposure: No - Caffeine Use Caffeine Use: Reports: Soda Caffeine Use Comment: 1drink/day - Recreational Drug Use Recreational Drug Use: No ED ROS GENERAL - Review of Systems Review Of Systems: See Below Constitutional: Reports: No Symptoms HEENT: Reports: No Symptoms Respiratory: Reports: No Symptoms Cardiovascular: Reports: No Symptoms Endocrine: Reports: No Symptoms GI/Abdominal: Reports: No Symptoms : Reports: No Symptoms Musculoskeletal: Reports: No Symptoms Skin: Reports: No Symptoms Neurological: Reports: No Symptoms Psychiatric: Reports: No Symptoms Hematologic/Lymphatic: Reports: No Symptoms Immunologic: Reports: No Symptoms ED EXAM, GENERAL - Physical Exam Exam: See Below Exam Limited By: No Limitations General Appearance: Alert, WD/WN, No Apparent Distress Eye Exam: Bilateral Eye: EOMI, PERRL Throat/Mouth: Normal Inspection, Normal Lips Neck: Normal Inspection, Supple, Non-Tender Respiratory/Chest: No Respiratory Distress, Lungs Clear, Normal Breath Sounds Cardiovascular: Normal Peripheral Pulses, Regular Rate, Rhythm GI/Abdominal: Normal Bowel Sounds, Soft, Non-Tender Extremities: Normal Inspection, Normal Range of Motion, Non-Tender Neurological: Alert, Oriented, CN II-XII Intact, Normal Cognition, Normal Gait Course - Vital Signs Last Recorded V/S: Last Vital Signs Temp 97.4 F 12/08/20 23:38 Pulse 97 12/08/20 23:38 Resp 18 12/08/20 23:38 BP 134/71 12/08/20 23:38 Pulse Ox 96 12/08/20 23:38 Departure - Departure Time of Disposition: 00:00 Disposition: Home, Self-Care 01 Condition: Good Clinical Impression: Cough - Discharge Information *PRESCRIPTION DRUG MONITORING PROGRAM REVIEWED*: Not Applicable *COPY OF PRESCRIPTION DRUG MONITORING REPORT IN PATIENT MANJULA: Not Applicable Instructions: Cough, Adult Referrals: David Stuart MD [Primary Care Provider] - Additional Instructions: The following information is given to patients seen in the emergency department who are being discharged to home. This information is to outline your options for follow-up care. We provide all patients seen in our emergency department with a follow-up referral. The need for follow-up, as well as the timing and circumstances, are variable depending upon the specifics of your emergency department visit. If you don't have a primary care physician on staff, we will provide you with a referral. We always advise you to contact your personal physician following an emergency department visit to inform them of the circumstance of the visit and for follow-up with them and/or the need for any referrals to a consulting specialist. The emergency department will also refer you to a specialist when appropriate. This referral assures that you have the opportunity for follow-up care with a specialist. All of these measure are taken in an effort to provide you with optimal care, which includes your follow-up. Under all circumstances we always encourage you to contact your private physician who remains a resource for coordinating your care. When calling for follow-up care, please make the office aware that this follow-up is from your recent emergency room visit. If for any reason you are refused follow-up, please contact the [facility] Emergency Department at and asked to speak to the emergency department charge nurse. Please follow up with your primary care physician. If you do not have a primary care physician, see below: [facility] Primary Care [address] [place] [id number] My [facility] [address] [place] [address] You were seen today for cough. On exam you had clear lungs and no difficulty breathing. You look well your vitals have the normal range so we elected to provide you medication for your cough. This medication may make you sleepy do not drink or drive while taking this medication. You have any other concerning signs or symptoms please return to the ED immediately. Sepsis Event Note (ED) - Evaluation Sepsis Screening Result: No Definite Risk - Focused Exam Vital Signs: Vital Signs Temp Pulse Resp BP Pulse Ox 12/08/20 23:38 97.4 F 97 18 134/71 96 - Assessment/Plan Plan: Patient is a 80-year-old female who presents today for cough. On exam patient only has complaints of cough patient was well patient vital signs within normal limits. Would not do x-ray now patient has no wheezing on exam just a cough. We can try this on her patient with her cough with Tylenol with codeine. Patient given strict return precautions.
== END 2020-12-09 00:18 | disposition home or self-care (01) ==
LOC: MW.ED 23:18
DX: R05 Cough (principal); E78.00 Pure hypercholesterolemia, unspecified; I10 Essential (primary) hypertension; Z88.6 Allergy status to analgesic agent; Z79.899 Other long term (current) drug therapy
CPT/HCPCS: 99283

== ENCOUNTER 2020-12-18 07:10 | Emergency (ER) | payer MEDICARE ==
[2020-12-18] MEDS ORDERED: Ondansetron 4 MG Tab.DIS PO ONE (07:40)
[2020-12-18] MEDS ORDERED: Acetaminophen/oxyCODONE 325-5 MG Tab PO ONE (07:40)
--- NOTE | 2020-12-18 07:45 | EDM.PDOC ---
ED HPI GENERAL MEDICAL PROBLEM - General Chief Complaint: Upper Extremity Injury/Pain Stated Complaint: FELL- HURT LEFT ARM Time Seen by Provider: 12/18/20 07:28 Source of Information: Reports: Patient History Limitations: Reports: No Limitations - History of Present Illness INITIAL COMMENTS - FREE TEXT/NARRATIVE: Patient is a 80-year-old female presenting today for left arm pain. Patient states that she was walking and tripped over the rug landing directly on her left shoulder. Patient since then has had intense pain with any movement or touching of the shoulder. She denies any numbness or tingling to the arms. She denies hitting her head or have any LOC. She states the pain is not radiating. She took some Motrin has not relieved the pain. Patient currently denies any other complaints. 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 left should Pain Score (Numeric/FACES): 10 - Related Data Allergies Allergy/AdvReac Type Severity Reaction Status Date / Time morphine Allergy Numbness Verified 12/18/20 07:27 Home Meds: Home Meds Lisinopril [Prinivil] 5 mg PO DAILY 10/19/16 [History] amLODIPine [Norvasc] 5 mg PO BID 10/19/16 [History] atorvaSTATin [Lipitor] 40 mg PO DAILY 10/19/16 [History] Famciclovir 500 mg PO TID 7 Days #21 tablet 02/20/19 [Rx] Acetaminophen with Codeine [Acetaminop-Codeine 120-12 mg/5] 5 ml PO Q4HR PRN 5 Days #1 solution 12/09/20 [Rx] Furosemide [Lasix] 20 mg PO DAILY 12/18/20 [History] Iron 60 mg PO DAILY 12/18/20 [History] Past Medical History HEENT History: Reports: None, Other (See Below) Other HEENT History: Wears glasses Cardiovascular History: Reports: High Cholesterol, Hypertension Respiratory History: Reports: None Gastrointestinal History: Reports: None Genitourinary History: Reports: None 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: Musculoskeletal History: Reports: Osteoarthritis Neurological History: Reports: None Psychiatric History: Reports: None Endocrine/Metabolic History: Reports: None Hematologic History: Reports: None Immunologic History: Reports: None Oncologic (Cancer) History: Reports: None Dermatologic History: Reports: None - Infectious Disease History Infectious Disease History: Reports: Chicken Pox, Measles - Past Surgical History Head Surgeries/Procedures: Reports: None HEENT Surgical History: Reports: None Cardiovascular Surgical History: Reports: None Respiratory Surgical History: Reports: None GI Surgical History: Reports: Hernia, Abdominal Female Surgical History: Reports: None Endocrine Surgical History: Reports: None Musculoskeletal Surgical History: Reports: None Dermatological Surgical History: Reports: None Social & Family History - Family History Family Medical History: No Pertinent Family History - Caffeine Use Caffeine Use: Reports: Soda Caffeine Use Comment: 1drink/day Review of Systems - Review of Systems Review Of Systems: See Below Constitutional: Reports: No Symptoms Eyes: Reports: No Symptoms Ears: Reports: No Symptoms Nose: Reports: No Symptoms Mouth/Throat: Reports: No Symptoms Respiratory: Reports: No Symptoms Cardiovascular: Reports: No Symptoms GI/Abdominal: Reports: No Symptoms Genitourinary: Reports: No Symptoms Musculoskeletal: Reports: Arm Pain Skin: Reports: No Symptoms Neurological: Reports: No Symptoms Psychiatric: Reports: No Symptoms ED EXAM, GENERAL - Physical Exam Exam: See Below Exam Limited By: No Limitations General Appearance: Alert, WD/WN, No Apparent Distress Eye Exam: Bilateral Eye: EOMI, PERRL Neck: Normal Inspection, Supple, Non-Tender Respiratory/Chest: No Respiratory Distress, Lungs Clear Cardiovascular: Normal Peripheral Pulses, Regular Rate, Rhythm Peripheral Pulses: 2+: Radial (L), Radial (R) GI/Abdominal: Normal Bowel Sounds, Soft, Non-Tender Extremities: Normal Inspection. No: Normal Range of Motion (to painful to mov e), Non-Tender Neurological: Alert, Oriented Course - Vital Signs Last Recorded V/S: Last Vital Signs Temp 96.6 F L 12/18/20 07:25 Pulse 102 H 12/18/20 07:25 Resp 18 12/18/20 07:25 BP 122/87 12/18/20 07:25 Pulse Ox 97 12/18/20 07:25 - Orders/Labs/Meds Orders: Active Orders 24 hr Category Date Time Status Orthopedic Treatments [RC] ASDIRECTED Care 12/18/20 09:20 Active Meds: Medications Discontinued Medications Generic Name Dose Route Start Last Admin Trade Name Freq PRN Reason Stop Dose Admin Ondansetron HCl 4 mg 12/18/20 07:40 12/18/20 08:01 Ondansetron 4 Mg Tab.Dis PO 12/18/20 07:41 4 mg ONETIME ONE Administration Oxycodone/Acetaminophen 1 tab 12/18/20 07:40 12/18/20 08:01 Acetaminophen/Oxycodone 325-5 Mg Tab PO 12/18/20 07:41 1 tab ONETIME ONE Administration - Re-Assessments/Exams Free Text/Narrative Re-Assessment/Exam: 12/18/20 11:07 Patient has a fracture of the humerus right below the head. There is nondisplaced. We spoke to orthopedic Dr. Deleon about follow-up with patient. He believes may be a pathological fracture. We obtained the CT scan did not show any mass or any signs of any reason would be a pathological fracture. He recommend the patient follow-up with her primary doctor for a cancer work-up. We will patient follow-up with Mario Lanier his her PMD as there. Also have ramirez ent follow-up with Ortho in my not as well. If not a pathologic fracture patient can be seen by orthopedics here in [place]. Departure - Departure Time of Disposition: 11:08 Disposition: Home, Self-Care 01 Condition: Good Clinical Impression: Humerus head fracture - Discharge Information *PRESCRIPTION DRUG MONITORING PROGRAM REVIEWED*: Not Applicable *COPY OF PRESCRIPTION DRUG MONITORING REPORT IN PATIENT MANJULA: Not Applicable Instructions: Humerus Fracture Treated With Immobilization, [id number] Referrals: David Stuart MD [Primary Care Provider] - Forms: ED Department Discharge Additional Instructions: The following information is given to patients seen in the emergency department who are being discharged to home. This information is to outline your options for follow-up care. We provide all patients seen in our emergency department with a follow-up referral. The need for follow-up, as well as the timing and circumstances, are variable depending upon the specifics of your emergency department visit. If you don't have a primary care physician on staff, we will provide you with a referral. We always advise you to contact your personal physician following an emergency department visit to inform them of the circumstance of the visit and for follow-up with them and/or the need for any referrals to a consulting specialist. The emergency department will also refer you to a specialist when appropriate. This referral assures that you have the opportunity for follow-up care with a specialist. All of these measure are taken in an effort to provide you with optimal care, which includes your follow-up. Under all circumstances we always encourage you to contact your private physician who remains a resource for coordinating your care. When calling for follow-up care, please make the office aware that this follow-up is from your recent emergency room visit. If for any reason you are refused follow-up, please contact the [facility] Emergency Department at and asked to speak to the emergency department charge nurse. Please follow up with your primary care physician. If you do not have a primary care physician, see below: [facility] [address] [place] [id number] [facility] [address] [facility], [address] [place] [address] ] You were seen today after a trip and fall. You have a fracture of your humerus. We were able to speak to our orthopedic physicians here about your injury and this will most likely not require surgery. We would still like you to follow-up with orthopedic surgeon. Our orthopedic doctors here were concerned about a pathological fracture which may be due to cancer. We did a CT scan did not show any mass or any reason why this would be a pathological fracture however we still recommended you follow-up with your primary care physician for further work-up. Above is also a number to follow-up with orthopedics as well. Sepsis Event Note (ED) - Evaluation Sepsis Screening Result: No Definite Risk - Focused Exam Vital Signs: Vital Signs Temp Pulse Resp BP Pulse Ox 12/18/20 07:25 96.6 F L 102 H 18 122/87 97 - My Orders Last 24 Hours: My Active Orders 12/18/20 09:20 Orthopedic Treatments [RC] ASDIRECTED - Assessment/Plan Last 24 Hours: My Active Orders 12/18/20 09:20 Orthopedic Treatments [RC] ASDIRECTED Plan: Patient is a 80-year-old female who presents today for left arm pain. Patient took a fall earlier today. She has extreme tenderness and pain to the left arm even with any touching. Will obtain x-rays and provide pain control.
--- NOTE | 2020-12-18 08:55 | CR ---
Indication: Injury and pain Technique: Left humerus 2 views Comparison: None Findings/Impression: Bones: Acute transverse nondisplaced fracture is present in the base of the humeral head. No other fracture and no dislocation. Joint spaces: Severe arthritis in the shoulder joint. Soft tissues: Unremarkable. Dictated by Bennie Rivera MD @ 12/18/2020 8:53:[address] Bennie Rivera @ Dec 18 2020 8:53AM
--- NOTE | 2020-12-18 09:08 | CR ---
Indication: Injury and pain Technique: Left forearm 1 views Comparison: None Findings: Bones: Alignment is normal. No fractures or bone lesions. Joint spaces: Unremarkable. Soft tissues: Unremarkable. Impression: Limited single view of the distal forearm demonstrates no sign of acute injury. Dictated by Bennie Rivera MD @ 12/18/2020 9:06:[address] Bennie Rivera @ Dec 18 2020 9:06AM
--- NOTE | 2020-12-18 10:42 | CT ---
INDICATION: Fall. Assess for humeral neck fracture. COMPARISON: Plain film same date. TECHNIQUE: Multidetector imaging centered on the left humerus with axial coronal and sagittal formats in bone and soft tissue window. FINDINGS: End-stage arthrosis of the glenohumeral joint with broad flattened glenoid with sclerotic margin. Flat and humeral head. Large bulky marginal osteophytes of the glenoid and particularly humeral head. Acute mildly comminuted surgical neck fracture extending through the base of the lesser tuberosity and undercutting the greater tuberosity cortex with minimal comminution. No intra-articular extension. Osteopenia in the distal humerus. Mild osteoarthritis suggested at the elbow. Several ossified intra-articular bodies at the superior glenohumeral joint line. Mineralization capsule and synovium and mild degenerative arthrosis narrowing and subarticular sclerosis and cysts at the AC joint without widening. No [id number] rotator cuff muscle atrophy appreciated. IMPRESSION: 1. Nondisplaced mildly comminuted right humeral surgical neck fracture. 2. 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 Chronic degenerative remodeling of humeral head and glenoid. Multiple ossified intra-articular bodies. Prominent inferior osteophytic hypertrophy of the humeral head. 3. Moderate degenerative arthrosis of the AC joint. Please note that all CT scans at this facility use dose modulation, iterative reconstruction, and/or weight-based dosing when appropriate to reduce radiation dose to as low as reasonably achievable. Dictated by Luisito Uriarte MD @ 12/18/2020 10:41:[address] Luisito Uriarte @ Dec 18 2020 10:41AM
[2020-12-18 11:34] VITALS: BP 95/70; PULSE 77
== END 2020-12-18 11:15 | disposition home or self-care (01) ==
LOC: MW.ED 07:10
DX: S42.214A Unspecified nondisplaced fracture of surgical neck of right humerus, initial encounter for closed fracture (principal); E78.00 Pure hypercholesterolemia, unspecified; I10 Essential (primary) hypertension; Z88.5 Allergy status to narcotic agent; Z79.899 Other long term (current) drug therapy; W01.0XXA Fall on same level from slipping, tripping and stumbling without subsequent striking against object, initial encounter; Y93.01 Activity, walking, marching and hiking
CPT/HCPCS: 73060; 73090; 73200; 99284; A9270

== ENCOUNTER 2023-03-23 16:32 | Emergency (ER) | payer MEDICARE ==
[2023-03-23] MEDS ORDERED: Bacitracin Oint 1 GM U/D Packet TOP ONE (17:52)
[2023-03-23] MEDS ORDERED: Ibuprofen 600 MG Tab PO ONE (17:52)
[2023-03-23 18:16] VITALS: BP 130/67; PULSE 74
== END 2023-03-23 18:15 | disposition home or self-care (01) ==
LOC: MW.ED 16:32
DX: S09.90XA Unspecified injury of head, initial encounter (principal); E78.00 Pure hypercholesterolemia, unspecified; I10 Essential (primary) hypertension; Z79.899 Other long term (current) drug therapy; Z88.5 Allergy status to narcotic agent; W18.30XA Fall on same level, unspecified, initial encounter
CPT/HCPCS: 70450; 72125; 73140; 99284; A9270; 99283